=== PATIENT | female | born 1955 | race Caucasian/White ===

== ENCOUNTER 2016-11-09 01:55 | Emergency (ER) | payer SELFPAY | END 2016-11-09 02:22 | disposition left against medical advice (07) | LOC: ER 01:55 | DX: M79.602 Pain in left arm (principal); Z53.21 Procedure and treatment not carried out due to patient leaving prior to being seen by health care provider ==

== ENCOUNTER → 2020-10-02 | Outpatient (CLI) | payer OTHER ==
[2020-10-01] MEDS: IOHEXOL 350 MG/ML 100 ML VIAL. IV ONE (14:30)
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
== END ==
LOC: CT 14:00
PROVIDERS: ATTEND Internal Medicine
DX: S13.4XXA Sprain of ligaments of cervical spine, initial encounter (principal); S29.012A Strain of muscle and tendon of back wall of thorax, initial encounter; I65.23 Occlusion and stenosis of bilateral carotid arteries; K57.30 Diverticulosis of large intestine without perforation or abscess without bleeding; R42 Dizziness and giddiness; V89.2XXA Person injured in unspecified motor-vehicle accident, traffic, initial encounter; Y93.89 Activity, other specified; Y92.89 Other specified places as the place of occurrence of the external cause; Y99.8 Other external cause status
CPT/HCPCS: 70498; 71275; Q9967